=== PATIENT | female | born 1955 | race Caucasian/White ===

== ENCOUNTER 2016-06-12 15:40 | Emergency (ER) | payer OTHER ==
[2016-06-12 16:17] LABS: BASO % 0.6 % (0.0-1.0); EOS # 0.2 K/mm3 (0.0-0.50); EOS % 2.1 % (0.0-3.0); LARGE UNSTAINED CELL # 0.1 K/mm3 (0.0-0.4); LARGE UNSTAINED CELL % 1.8 % (0.0-4.0); LYMPH # 1.9 K/mm3 (1.5-4.5); LYMPH % 23.1 % (24.0-44.0); MEAN CORPUSCULAR HEMOGLOBIN 32.4 pg (27.0-33.0); MEAN CORPUSCULAR HGB CONC 35.1 g/dl (32.0-36.5); MEAN CORPUSCULAR VOLUME 92.3 fl (80.0-96.0); MONO # 0.5 K/mm3 (0.0-0.8); MONO % 6.4 % (0.0-5.0); NEUTROPHILS # 5.4 K/mm3 (1.8-7.7); PLATELET COUNT, AUTOMATED 258 k/mm3 (150-450); RED CELL DISTRIBUTION WIDTH 12.3 % (11.5-14.5); WHITE BLOOD COUNT 8.2 K/mm3 (4.0-10.0)
[2016-06-12 16:27] LABS: INR 0.85
[2016-06-12 19:09] LABS: ANION GAP 9 MEQ/L (8-16); BLOOD UREA NITROGEN 15 MG/DL (7-18); CALCIUM LEVEL 9.7 MG/DL (8.5-10.1); CARBON DIOXIDE LEVEL 23 MEQ/L (21-32); CHLORIDE LEVEL 108 MEQ/L (98-107); CREATININE FOR GFR 0.63 MG/DL (0.55-1.02); GLOMERULAR FILTRATION RATE > 60.0 (>51); GLUCOSE, FASTING 139 MG/DL (70-105); SODIUM LEVEL 140 MEQ/L (136-145)
[2016-06-12] MEDS ORDERED: ATENOLOL 25 MG TAB As Ordered ONE (21:18)
--- NOTE | 2016-06-12 21:30 | EDDOCDS ---
Physician Documentation [facility] Name: Abby Arguelles Age: 60 yrs Sex: Female : 1955 Arrival Date: 06/12/2016 Time: 15:40 Bed 14 Private MD: Disposition: 06/12/16 20:52 Discharged to Home/Self Care. Impression: Chest pain, unspecified. - Condition is Stable. - Discharge Instructions: Angina Pectoris, Nonspecific Chest Pain. - Prescriptions for Aspirin 81 mg - take 1 tablet by ORAL route once daily; 90 tablet. - Medication Reconciliation, Local Pharmacy Hours form. - Follow up: Camron Jack MD; When: Call to arrange an appointment; Reason: To establish care. - Problem is an acute exacerbation. - Symptoms are resolved. - Notes: I SPOKE WITH DR JACK AND HIS OFFICE WILL BE EXPECTING YOUR CALL Monday. RETURN TO THE ER IF YOUR SYMPTOMS RETURN. Historical: - Allergies: no known allergies; - Home Meds: 1. atenolol 50 mg Oral tab 2 times per day - PMHx: [place]; Hypertension; - PSHx: D & C; ; - Social history: Smoking status: Patient states was never smoker of tobacco. No barriers to communication noted, The patient speaks fluent Bengali, Speaks appropriately for age. - Family history: Not pertinent. - : The pt / caregiver states he / she is not on anticoagulants. Home medication list is obtained from the patient. - Exposure Risk Screening:: None identified. Vital Signs: 06/12 15:47 Resp 18; Weight 99.79 kg / 220 lbs (R); Height 5 ft. 4 in. (162.56 cm) (R); Pain 0/10; ead 15:50 BP 171 / 92; Pulse 88; Temp 98.5(O); Pulse Ox 96% on R/A; ead 16:42 BP 163 / 79 (auto/); ead 16:43 Pulse 80 MON; Pulse Ox 95% ; ead 17:12 BP 176 / 84 (auto/); ead 17:13 Pulse 68 MON; Pulse Ox 94% ; ead 17:42 BP 141 / 76 (auto/); ead 17:43 Pulse 78 MON; Pulse Ox 95% ; ead 18:39 Pulse 84 MON; Resp 20; Pulse Ox 95% on R/A; ead 18:42 BP 152 / 87 (auto/); kc3 18:45 Pulse 84 MON; Pulse Ox 95% ; kc3 19:12 BP 172 / 84 (auto/); kc3 19:13 Pulse 84 MON; Pulse Ox 93% ; kc3 19:42 BP 166 / 85 (auto/); kc3 19:43 Pulse 84 MON; Pulse Ox 94% ; kc3 20:12 Pulse 82 MON; Pulse Ox 94% ; kc3 20:14 BP 184 / 92 (auto/); kc3 20:20 BP 189 / 90 (auto/); kc3 20:22 Pulse 92 MON; Pulse Ox 94% ; kc3 21:26 BP 182 / 98; Pulse 86; Resp 18; Temp 96.8(O); Pulse Ox 95% on R/A; Pain 0/10; kc3 15:47 Body Mass Index 37.76 (99.79 kg, 162.56 cm) ead 21:26 Dr. Chavarria aware of pt BP at discharge. Pt medicated with home BP medication prior to [facility] discharge per MD order. Pt approved for discharge per MD. MDM: 15:43 ECG WITH READING ER PHYS+CARDIAG ordered. EDMS 15:50 Aspirin Chewable Tablet 324 mg PO once ordered. fg 15:50 Carpet Repairer/Pulse Ox/q 30 min VS ordered. fg 15:50 IV Saline Lock ordered. fg 15:50 Rhythm Strip to chart ordered. fg 15:50 Undress patient appropriately for examination ordered. fg 15:50 B-Type Natiuretic Peptide Ordered. EDMS 15:50 Basic Metabolic Profile Ordered. EDMS 15:50 CBC with Diff Ordered. EDMS 15:50 Cardiac Injury Profile Ordered. EDMS 15:50 Prothrombin Time Profile\E\INR Ordered. EDMS 15:50 Troponin Ordered. EDMS 15:51 portable chest Ordered. EDMS 17:51 Financial registration complete. zo 18:02 Repeat EKG (put time details section) ordered. fg 18:04 Repeat EKG (put time details section) complete. deg 18:05 ECG WITH READING ER PHYS ordered. EDMS 19:13 Basic Metabolic Profile Reviewed. mm11 19:13 CBC with Diff Reviewed. mm11 19:13 Prothrombin Time Profile\E\INR Reviewed. mm11 19:13 B-Type Natiuretic Peptide Reviewed. mm11 19:13 Cardiac Injury Profile Reviewed. mm11 19:13 Troponin Reviewed. mm11 19:55 Redraw CIP &Troponin (put time in details section) ordered. mm11 19:56 Redraw CIP &Troponin (put time in details section) complete. ar3 19:57 CARDIAC MARKER PANEL Ordered. EDMS 20:08 [facility] Payment Agreement was scanned into [employer] and attached to record. zo 20:45 CARDIAC MARKER PANEL Reviewed. mm11 21:17 Atenolol 50 mg PO once ordered. mm11 Administered Medications: 15:52 Not Given (pt received 324 mg prior to arrivall): Aspirin Chewable Tablet 324 mg PO onceead 21:22 Drug: Atenolol 50 mg [atenolol 25 mg tablet (2 tabs)] Route: PO; kc3 Signatures: Dispatcher [employer] EDRenea Rodriguez, El Teacher Unit deg Guero Yates zo Ulisses Chavarria, DO mm11 [place], FIGHTING VEHICLE SYSTEMS MAINTAINER FIGHTING VEHICLE SYSTEMS MAINTAINER arTalya Stahl,RN RN Radha Ray MD MD fg Crane, Kelsi,[place] RN kc3 The chart was reviewed and I authenticate all verbal orders and agree with the evaluation and treatment provided.Corrections: (The following items were deleted from the chart) 18:38 18:04 CARDIAC MARKER PANEL+LAB ordered. EDMS EDMS 18:38 18:04 TROPONIN+LAB ordered. EDMS EDMS Attachments: 20:08 [facility] Payment Agreement zo MTDD
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
--- NOTE | 2016-06-13 11:24 | REP ---
Portable chest, single AP view, patient sitting: Comparison is 11/06/2014. The lung castellon are clear. The cardiac size is normal The kameron, mediastinum, and bony thorax are unremarkable. Impression: Negative portable chest. Signed by Marco A Brennan MD 06/12/2016 04:50 P
--- NOTE | 2016-06-13 20:37 | ECGEPIP ---
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
--- NOTE | 2016-06-13 20:51 | ECGEPIP ---
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
--- NOTE | 2016-06-14 22:30 | EDDOCDS ---
Physician Documentation [facility] Name: Abby Arguelles Age: 60 yrs Sex: Female : 1955 Arrival Date: 06/12/2016 Time: 15:40 Bed 14 Private MD: Disposition: 06/12/16 20:52 Discharged to Home/Self Care. Impression: Chest pain, unspecified. - Condition is Stable. - Discharge Instructions: Angina Pectoris, Nonspecific Chest Pain. - Prescriptions for Aspirin 81 mg - take 1 tablet by ORAL route once daily; 90 tablet. - Medication Reconciliation, Local Pharmacy Hours form. - Follow up: Camron Jack MD; When: Call to arrange an appointment; Reason: To establish care. - Problem is an acute exacerbation. - Symptoms are resolved. - Notes: I SPOKE WITH DR JACK AND HIS OFFICE WILL BE EXPECTING YOUR CALL Monday. RETURN TO THE ER IF YOUR SYMPTOMS RETURN. Historical: - Allergies: no known allergies; - Home Meds: 1. atenolol 50 mg Oral tab 2 times per day - PMHx: [place]; Hypertension; - PSHx: D & C; ; - Social history: Smoking status: Patient states was never smoker of tobacco. No barriers to communication noted, The patient speaks fluent Uzbek, Speaks appropriately for age. - Family history: Not pertinent. - : The pt / caregiver states he / she is not on anticoagulants. Home medication list is obtained from the patient. - Exposure Risk Screening:: None identified. Vital Signs: 06/12 15:47 Resp 18; Weight 99.79 kg / 220 lbs (R); Height 5 ft. 4 in. (162.56 cm) (R); Pain 0/10; ead 15:50 BP 171 / 92; Pulse 88; Temp 98.5(O); Pulse Ox 96% on R/A; ead 16:42 BP 163 / 79 (auto/); ead 16:43 Pulse 80 MON; Pulse Ox 95% ; ead 17:12 BP 176 / 84 (auto/); ead 17:13 Pulse 68 MON; Pulse Ox 94% ; ead 17:42 BP 141 / 76 (auto/); ead 17:43 Pulse 78 MON; Pulse Ox 95% ; ead 18:39 Pulse 84 MON; Resp 20; Pulse Ox 95% on R/A; ead 18:42 BP 152 / 87 (auto/); kc3 18:45 Pulse 84 MON; Pulse Ox 95% ; kc3 19:12 BP 172 / 84 (auto/); kc3 19:13 Pulse 84 MON; Pulse Ox 93% ; kc3 19:42 BP 166 / 85 (auto/); kc3 19:43 Pulse 84 MON; Pulse Ox 94% ; kc3 20:12 Pulse 82 MON; Pulse Ox 94% ; kc3 20:14 BP 184 / 92 (auto/); kc3 20:20 BP 189 / 90 (auto/); kc3 20:22 Pulse 92 MON; Pulse Ox 94% ; kc3 21:26 BP 182 / 98; Pulse 86; Resp 18; Temp 96.8(O); Pulse Ox 95% on R/A; Pain 0/10; kc3 15:47 Body Mass Index 37.76 (99.79 kg, 162.56 cm) ead 21:26 Dr. Chavarria aware of pt BP at discharge. Pt medicated with home BP medication prior to [facility] discharge per MD order. Pt approved for discharge per MD. MDM: 15:43 ECG WITH READING ER PHYS+CARDIAG ordered. EDMS 15:50 Aspirin Chewable Tablet 324 mg PO once ordered. fg 15:50 Regulatory Compliance Director/Pulse Ox/q 30 min VS ordered. fg 15:50 IV Saline Lock ordered. fg 15:50 Rhythm Strip to chart ordered. fg 15:50 Undress patient appropriately for examination ordered. fg 15:50 B-Type Natiuretic Peptide Ordered. EDMS 15:50 Basic Metabolic Profile Ordered. EDMS 15:50 CBC with Diff Ordered. EDMS 15:50 Cardiac Injury Profile Ordered. EDMS 15:50 Prothrombin Time Profile\E\INR Ordered. EDMS 15:50 Troponin Ordered. EDMS 15:51 portable chest Ordered. EDMS 17:51 Financial registration complete. zo 18:02 Repeat EKG (put time details section) ordered. fg 18:04 Repeat EKG (put time details section) complete. deg 18:05 ECG WITH READING ER PHYS ordered. EDMS 19:13 Basic Metabolic Profile Reviewed. mm11 19:13 CBC with Diff Reviewed. mm11 19:13 Prothrombin Time Profile\E\INR Reviewed. mm11 19:13 B-Type Natiuretic Peptide Reviewed. mm11 19:13 Cardiac Injury Profile Reviewed. mm11 19:13 Troponin Reviewed. mm11 19:55 Redraw CIP &Troponin (put time in details section) ordered. mm11 19:56 Redraw CIP &Troponin (put time in details section) complete. ar3 19:57 CARDIAC MARKER PANEL Ordered. EDMS 20:08 [facility] Payment Agreement was scanned into [employer] and attached to record. zo 20:45 CARDIAC MARKER PANEL Reviewed. mm11 21:17 Atenolol 50 mg PO once ordered. mm11 06/13 11:53 T-Sheet-- Draft Copy was scanned into [employer] and attached to record. gb 11:53 ECG/EKG was scanned into [employer] and attached to record. gb 11:53 Trend VS was scanned into [employer] and attached to record. gb 11:54 Rhythm Strip was scanned into [employer] and attached to record. gb Administered Medications: 06/12 15:52 Not Given (pt received 324 mg prior to arrivall): Aspirin Chewable Tablet 324 mg PO onceead 21:22 Drug: Atenolol 50 mg [atenolol 25 mg tablet (2 tabs)] Route: PO; kc3 Signatures: Dispatcher [employer] EDMS Renea Martel, Ab Initio Etl Developer Unit deg Riana Fierro, Reg Reg gb [place], Zoeadandre zo Ulisses Chavarria, DO mm11 Oriana Meadowsa, MACHINE SET UP OPERATOR PAPER GOODS MACHINE SET UP OPERATOR PAPER GOODS ar3 Talya Sosa,Radha Sharp RN, MD MD fg Crane, Kelsi,[place] RN kc3 The chart was reviewed and I authenticate all verbal orders and agree with the evaluation and treatment provided.Corrections: (The following items were deleted from the chart) 18:38 18:04 CARDIAC MARKER PANEL+LAB ordered. EDMS EDMS 18:38 18:04 TROPONIN+LAB ordered. EDMS EDMS Attachments: 20:08 [facility] Payment Agreement zo 06/13 11:53 T-Sheet-- Draft Copy gb 11:53 ECG/EKG gb Chart Complete MTDD
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
--- NOTE | 2016-06-14 22:30 | EDDOCDS ---
Physician Documentation [facility] Name: Abby Arguelles Age: 60 yrs Sex: Female : 1955 Arrival Date: 06/12/2016 Time: 15:40 Bed 14 Private MD: Disposition: 06/12/16 20:52 Discharged to Home/Self Care. Impression: Chest pain, unspecified. - Condition is Stable. - Discharge Instructions: Angina Pectoris, Nonspecific Chest Pain. - Prescriptions for Aspirin 81 mg - take 1 tablet by ORAL route once daily; 90 tablet. - Medication Reconciliation, Local Pharmacy Hours form. - Follow up: Camron Jack MD; When: Call to arrange an appointment; Reason: To establish care. - Problem is an acute exacerbation. - Symptoms are resolved. - Notes: I SPOKE WITH DR JACK AND HIS OFFICE WILL BE EXPECTING YOUR CALL Monday. RETURN TO THE ER IF YOUR SYMPTOMS RETURN. Historical: - Allergies: no known allergies; - Home Meds: 1. atenolol 50 mg Oral tab 2 times per day - PMHx: [place]; Hypertension; - PSHx: D & C; ; - Social history: Smoking status: Patient states was never smoker of tobacco. No barriers to communication noted, The patient speaks fluent Slovak, Speaks appropriately for age. - Family history: Not pertinent. - : The pt / caregiver states he / she is not on anticoagulants. Home medication list is obtained from the patient. - Exposure Risk Screening:: None identified. Vital Signs: 06/12 15:47 Resp 18; Weight 99.79 kg / 220 lbs (R); Height 5 ft. 4 in. (162.56 cm) (R); Pain 0/10; ead 15:50 BP 171 / 92; Pulse 88; Temp 98.5(O); Pulse Ox 96% on R/A; ead 16:42 BP 163 / 79 (auto/); ead 16:43 Pulse 80 MON; Pulse Ox 95% ; ead 17:12 BP 176 / 84 (auto/); ead 17:13 Pulse 68 MON; Pulse Ox 94% ; ead 17:42 BP 141 / 76 (auto/); ead 17:43 Pulse 78 MON; Pulse Ox 95% ; ead 18:39 Pulse 84 MON; Resp 20; Pulse Ox 95% on R/A; ead 18:42 BP 152 / 87 (auto/); kc3 18:45 Pulse 84 MON; Pulse Ox 95% ; kc3 19:12 BP 172 / 84 (auto/); kc3 19:13 Pulse 84 MON; Pulse Ox 93% ; kc3 19:42 BP 166 / 85 (auto/); kc3 19:43 Pulse 84 MON; Pulse Ox 94% ; kc3 20:12 Pulse 82 MON; Pulse Ox 94% ; kc3 20:14 BP 184 / 92 (auto/); kc3 20:20 BP 189 / 90 (auto/); kc3 20:22 Pulse 92 MON; Pulse Ox 94% ; kc3 21:26 BP 182 / 98; Pulse 86; Resp 18; Temp 96.8(O); Pulse Ox 95% on R/A; Pain 0/10; kc3 15:47 Body Mass Index 37.76 (99.79 kg, 162.56 cm) ead 21:26 Dr. Chavarria aware of pt BP at discharge. Pt medicated with home BP medication prior to [facility] discharge per MD order. Pt approved for discharge per MD. MDM: 15:43 ECG WITH READING ER PHYS+CARDIAG ordered. EDMS 15:50 Aspirin Chewable Tablet 324 mg PO once ordered. fg 15:50 Channel Worker/Pulse Ox/q 30 min VS ordered. fg 15:50 IV Saline Lock ordered. fg 15:50 Rhythm Strip to chart ordered. fg 15:50 Undress patient appropriately for examination ordered. fg 15:50 B-Type Natiuretic Peptide Ordered. EDMS 15:50 Basic Metabolic Profile Ordered. EDMS 15:50 CBC with Diff Ordered. EDMS 15:50 Cardiac Injury Profile Ordered. EDMS 15:50 Prothrombin Time Profile\E\INR Ordered. EDMS 15:50 Troponin Ordered. EDMS 15:51 portable chest Ordered. EDMS 17:51 Financial registration complete. zo 18:02 Repeat EKG (put time details section) ordered. fg 18:04 Repeat EKG (put time details section) complete. deg 18:05 ECG WITH READING ER PHYS ordered. EDMS 19:13 Basic Metabolic Profile Reviewed. mm11 19:13 CBC with Diff Reviewed. mm11 19:13 Prothrombin Time Profile\E\INR Reviewed. mm11 19:13 B-Type Natiuretic Peptide Reviewed. mm11 19:13 Cardiac Injury Profile Reviewed. mm11 19:13 Troponin Reviewed. mm11 19:55 Redraw CIP &Troponin (put time in details section) ordered. mm11 19:56 Redraw CIP &Troponin (put time in details section) complete. ar3 19:57 CARDIAC MARKER PANEL Ordered. EDMS 20:08 [facility] Payment Agreement was scanned into [employer] and attached to record. zo 20:45 CARDIAC MARKER PANEL Reviewed. mm11 21:17 Atenolol 50 mg PO once ordered. mm11 06/13 11:53 T-Sheet-- Draft Copy was scanned into [employer] and attached to record. gb 11:53 ECG/EKG was scanned into [employer] and attached to record. gb 11:53 Trend VS was scanned into [employer] and attached to record. gb 11:54 Rhythm Strip was scanned into [employer] and attached to record. gb Administered Medications: 06/12 15:52 Not Given (pt received 324 mg prior to arrivall): Aspirin Chewable Tablet 324 mg PO onceead 21:22 Drug: Atenolol 50 mg [atenolol 25 mg tablet (2 tabs)] Route: PO; kc3 Signatures: Dispatcher [employer] EDMS Renea Martel, Environmental Field Technician Unit deg Riana Fierro, Reg Reg gb Newton, Zoeadandre zo Ulisses Chavarria, DO mm11 Oriana Meadowsa, LANGUAGE INSTRUCTOR LANGUAGE INSTRUCTOR ar3 Talya Sosa,Radha Sharp RN, MD MD fg Crane, Kelsi,[place] RN kc3 The chart was reviewed and I authenticate all verbal orders and agree with the evaluation and treatment provided.Corrections: (The following items were deleted from the chart) 18:38 18:04 CARDIAC MARKER PANEL+LAB ordered. EDMS EDMS 18:38 18:04 TROPONIN+LAB ordered. EDMS EDMS Attachments: 20:08 [facility] Payment Agreement zo 06/13 11:53 T-Sheet-- Draft Copy gb 11:53 ECG/EKG gb Chart Complete MTDD
== END 2016-06-12 21:29 | disposition home or self-care (01) ==
LOC: M ED 15:40
DX: R07.9 Chest pain, unspecified (principal); I20.9 Angina pectoris, unspecified; R94.31 Abnormal electrocardiogram [ECG] [EKG]; R06.02 Shortness of breath; I10 Essential (primary) hypertension; I25.2 Old myocardial infarction; Z79.899 Other long term (current) drug therapy

== ENCOUNTER 2016-07-14 19:26 | Emergency (ER) | payer OTHER ==
[~2016-07-14] VITALS: Ht 162.6 cm; Wt 111.1 kg
[2016-07-14] MEDS ORDERED: HYDR25TAB PO (20:00)
[2016-07-14] MEDS ORDERED: LABE10TAB PO (20:00)
[2016-07-14] MEDS ORDERED: NORV5TAB PO (20:00)
[2016-07-14] MEDS ORDERED: ASPI1TAB PO (20:00)
[2016-07-14] MEDS ORDERED: LABETALOL HCL 100 MG/20 ML VIAL IV STA (20:18)
[2016-07-14 20:40] LABS: BASO # 0.1 K/mm3 (0.0-0.2); BASO % 0.6 % (0.0-1.0); EOS # 0.2 K/mm3 (0.0-0.50); EOS % 2.3 % (0.0-3.0); LARGE UNSTAINED CELL # 0.2 K/mm3 (0.0-0.4); LARGE UNSTAINED CELL % 1.7 % (0.0-4.0); LYMPH # 2.8 K/mm3 (1.5-4.5); LYMPH % 26.2 % (24.0-44.0); MEAN CORPUSCULAR HEMOGLOBIN 32.4 pg (27.0-33.0); MEAN CORPUSCULAR HGB CONC 35.3 g/dl (32.0-36.5); MEAN CORPUSCULAR VOLUME 91.7 fl (80.0-96.0); MONO # 0.8 K/mm3 (0.0-0.8); MONO % 7.9 % (0.0-5.0); NEUTROPHILS # 6.1 K/mm3 (1.8-7.7); NEUTROPHILS % 61.3 % (36.0-66.0); PLATELET COUNT, AUTOMATED 293 k/mm3 (150-450); RED CELL DISTRIBUTION WIDTH 12.3 % (11.5-14.5); WHITE BLOOD COUNT 9.9 K/mm3 (4.0-10.0)
[2016-07-14 22:43] LABS: ANION GAP 11 MEQ/L (8-16); BLOOD UREA NITROGEN 18 MG/DL (7-18); CALCIUM LEVEL 10.2 MG/DL (8.5-10.1); CARBON DIOXIDE LEVEL 25 MEQ/L (21-32); CHLORIDE LEVEL 105 MEQ/L (98-107); CREATININE FOR GFR 0.82 MG/DL (0.55-1.02); GLOMERULAR FILTRATION RATE > 60.0 (>51); GLUCOSE, FASTING 204 MG/DL (70-105); POTASSIUM SERUM 3.8 MEQ/L (3.5-5.1); SODIUM LEVEL 141 MEQ/L (136-145)
[2016-07-15] MEDS ORDERED: LABETALOL 100 MG TAB PO ONE (02:00)
[2016-07-15 02:10] VITALS: BP 164/86
[2016-07-15 02:15] VITALS: BP 175/112
[2016-07-15] MEDS ORDERED: LABE10TAB PO (02:19)
--- NOTE | 2016-07-15 10:13 | REP ---
CHEST X-RAY: Two views. HISTORY: Chest pain. COMPARISON STUDY: June 12, 2016. FINDINGS: An azygos lobe is noted incidentally as before. The lungs are otherwise well inflated and free of infiltrate. Pleural angles are sharp. Heart is not enlarged. EKG monitoring electrodes overlie the chest. IMPRESSION: No active disease. Signed by Walter العراقي MD 07/15/2016 04:39 P
--- NOTE | 2016-07-16 12:14 | ECGEPIP ---
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
== END 2016-07-15 02:35 | disposition home or self-care (01) ==
LOC: EDBD 19:26 → M ED 21:07
DX: I16.0 Hypertensive urgency (principal); I10 Essential (primary) hypertension; Z79.899 Other long term (current) drug therapy; Z79.82 Long term (current) use of aspirin

== ENCOUNTER → 2016-09-13 | Outpatient (REF) | payer OTHER ==
[~2016-09-13] MED LIST: ASPI1TAB PO; HYDR25TAB PO; LABE10TAB PO; NORV5TAB PO
[2016-09-13 13:57] LABS: ALBUMIN/GLOBULIN RATIO 1.05 (1.00-1.93); ALKALINE PHOSPHATASE 77 U/L (45-117); ALT/SGPT 41 U/L (12-78); ANION GAP 8 MEQ/L (8-16); AST/SGOT 17 U/L (15-37); BILIRUBIN,TOTAL 0.4 MG/DL (0.2-1.0); BLOOD UREA NITROGEN 18 MG/DL (7-18); CALCIUM LEVEL 9.7 MG/DL (8.5-10.1); CARBON DIOXIDE LEVEL 25 MEQ/L (21-32); CHLORIDE LEVEL 107 MEQ/L (98-107); CREATININE FOR GFR 0.61 MG/DL (0.55-1.02); FREE T4 1.03 NG/DL (0.76-1.46); GLOMERULAR FILTRATION RATE > 60.0 (>51); GLUCOSE, FASTING 119 MG/DL (70-105); POTASSIUM SERUM 4.2 MEQ/L (3.5-5.1); SODIUM LEVEL 140 MEQ/L (136-145); TOTAL PROTEIN 7.8 GM/DL (6.4-8.2)
== END ==
LOC: M SFHCADAM 10:41
PROVIDERS: ATTEND Physician Assistant
DX: I10 Essential (primary) hypertension (principal); R73.03 Prediabetes; E78.4 Other hyperlipidemia

== ENCOUNTER → 2016-10-11 | Outpatient (REF) | payer OTHER | LOC: M SFHCADAM 09:35 | PROVIDERS: ATTEND Physician Assistant | DX: Z12.4 Encounter for screening for malignant neoplasm of cervix (principal) ==

== ENCOUNTER → 2017-02-09 | Outpatient (REF) | payer OTHER | LOC: M LAB REF 13:41 | PROVIDERS: ATTEND Obstetrics & Gynecology | DX: Q82.8 Other specified congenital malformations of skin (principal) ==

== ENCOUNTER → 2017-03-09 | Outpatient (REF) | payer OTHER ==
[2017-03-09 15:02] LABS: ALBUMIN 3.8 GM/DL (3.2-5.2); ALKALINE PHOSPHATASE 104 U/L (45-117); ALT/SGPT 35 U/L (12-78); ANION GAP 9 MEQ/L (8-16); AST/SGOT 16 U/L (15-37); BILIRUBIN,TOTAL 0.4 MG/DL (0.2-1.0); BLOOD UREA NITROGEN 19 MG/DL (7-18); CALCIUM LEVEL 9.7 MG/DL (8.5-10.1); CARBON DIOXIDE LEVEL 25 MEQ/L (21-32); CHLORIDE LEVEL 107 MEQ/L (98-107); CHOLESTEROL LEVEL 157 MG/DL (<200); CREATININE FOR GFR 0.68 MG/DL (0.55-1.02); GLOMERULAR FILTRATION RATE > 60.0 (>51); GLUCOSE, FASTING 120 MG/DL (70-105); POTASSIUM SERUM 4.3 MEQ/L (3.5-5.1); SODIUM LEVEL 141 MEQ/L (136-145); TOTAL PROTEIN 7.6 GM/DL (6.4-8.2); TRIGLYCERIDES LEVEL 179 MG/DL (<150)
== END ==
LOC: M SFHCADAM 08:58
PROVIDERS: ATTEND Physician Assistant
DX: R73.03 Prediabetes (principal); E78.4 Other hyperlipidemia; I10 Essential (primary) hypertension

== ENCOUNTER → 2017-07-28 | Outpatient (REF) | payer OTHER ==
[2017-07-28 13:20] LABS: ALBUMIN 4.1 GM/DL (3.2-5.2); ALBUMIN/GLOBULIN RATIO 1.28 (1.00-1.93); ALKALINE PHOSPHATASE 78 U/L (45-117); ALT/SGPT 46 U/L (12-78); ANION GAP 8 MEQ/L (8-16); AST/SGOT 14 U/L (7-37); BILIRUBIN,TOTAL 0.5 MG/DL (0.2-1.0); BLOOD UREA NITROGEN 23 MG/DL (7-18); CARBON DIOXIDE LEVEL 26 MEQ/L (21-32); CHLORIDE LEVEL 106 MEQ/L (98-107); CREATININE FOR GFR 0.67 MG/DL (0.55-1.30); GLOMERULAR FILTRATION RATE > 60.0 (>51); GLUCOSE, FASTING 117 MG/DL (70-100); POTASSIUM SERUM 4.3 MEQ/L (3.5-5.1); SODIUM LEVEL 140 MEQ/L (136-145); TOTAL PROTEIN 7.3 GM/DL (6.4-8.2)
[2017-07-28 13:25] LABS: ESTIMATED AVERAGE GLUCOSE 131 MG/DL (60-110); HEMOGLOBIN A1c 6.2 %
== END ==
LOC: M SFHCADAM 08:00
DX: E11.9 Type 2 diabetes mellitus without complications (principal); I10 Essential (primary) hypertension
CPT/HCPCS: 83036

== ENCOUNTER → 2018-02-05 | Outpatient (REF) | payer OTHER ==
[2018-02-05 13:35] LABS: ALBUMIN 3.6 GM/DL (3.2-5.2); ALBUMIN/GLOBULIN RATIO 1.03 (1.00-1.93); ALKALINE PHOSPHATASE 81 U/L (45-117); ALT/SGPT 29 U/L (12-78); ANION GAP 6 MEQ/L (8-16); AST/SGOT 15 U/L (7-37); BILIRUBIN,TOTAL 0.4 MG/DL (0.2-1.0); BLOOD UREA NITROGEN 19 MG/DL (7-18); CALCIUM LEVEL 9.7 MG/DL (8.8-10.2); CARBON DIOXIDE LEVEL 26 MEQ/L (21-32); CHLORIDE LEVEL 110 MEQ/L (98-107); CHOLESTEROL LEVEL 119 MG/DL (<200); CHOLESTEROL RISK RATIO 2.902 (<5); CREATININE FOR GFR 0.67 MG/DL (0.55-1.30); GLOMERULAR FILTRATION RATE > 60.0 (>45); GLUCOSE, FASTING 117 MG/DL (70-100); HDL CHOLESTEROL 41 MG/DL (>40); LDL CHOLESTEROL 55 MG/DL (<100); NON-HDL-C 78 MG/DL; POTASSIUM SERUM 4.3 MEQ/L (3.5-5.1); SODIUM LEVEL 142 MEQ/L (136-145); TOTAL PROTEIN 7.1 GM/DL (6.4-8.2); TRIGLYCERIDES LEVEL 115 MG/DL (<150)
[2018-02-05 14:20] LABS: ESTIMATED AVERAGE GLUCOSE 123 MG/DL (60-110); HEMOGLOBIN A1c 5.9 %
== END ==
LOC: M SFHCADAM 07:53
DX: I10 Essential (primary) hypertension (principal); E78.4 Other hyperlipidemia; E11.9 Type 2 diabetes mellitus without complications

== ENCOUNTER → 2018-07-31 | Outpatient (REF) | payer OTHER | LOC: M LAB REF 19:10 | PROVIDERS: ATTEND Physician Assistant Medical | DX: J02.9 Acute pharyngitis, unspecified (principal) ==

== ENCOUNTER → 2018-09-28 | Outpatient (REF) | payer OTHER ==
[~2018-09-28] MED LIST changes: -ASPI1TAB PO; +ASPI81TA26 PO
[2018-09-28 14:20] LABS: MALB URINE SIEMENS 12.1 MG/L; MAU/CREAT RATIO 13.1 MCG/MG (0.0-30.0)
[2018-09-28 18:14] LABS: HEMOGLOBIN A1c 5.9 %
== END ==
LOC: M SFHCADAM 09:07
PROVIDERS: ATTEND Physician Assistant
DX: E11.9 Type 2 diabetes mellitus without complications (principal); I10 Essential (primary) hypertension

== ENCOUNTER 2018-11-12 08:41 | Emergency (ER) | payer OTHER ==
[~2018-11-12] VITALS: Ht 162.6 cm; Wt 97.0 kg
[2018-11-12] MEDS ORDERED: LOSA25TA14 (08:47)
[2018-11-12] MEDS ORDERED: METF10004 (08:47)
[2018-11-12] MEDS ORDERED: ATOR40TA75 (08:47)
[2018-11-12] MEDS ORDERED: VENL75TA2 (08:47)
[2018-11-12] MEDS ORDERED: SPIR-10 (08:47)
[2018-11-12] MEDS ORDERED: IBUP-1114 PO (08:49)
[2018-11-12] MEDS ORDERED: NS 1,000 ML IV SCH (09:03)
[2018-11-12] MEDS ORDERED: KETOROLAC 30 MG/ML VIAL (J1885) IV ONE (09:15)
[2018-11-12] MEDS ORDERED: LR 1,000 ML IV SCH (09:30)
[2018-11-12] MEDS ORDERED: MEPERIDINE INJ 25 MG/ML VIAL (J2175) IV PRN (09:30)
[2018-11-12] MEDS ORDERED: ONDANSETRON 4MG/2ML VIAL (J2405) IV PRN (09:30)
[2018-11-12] MEDS ORDERED: PERCOCET 5MG/325MG TAB PO PRN (09:30)
[2018-11-12] MEDS ORDERED: fentaNYL 100 MCG/2 ML INJECTION (J3010) IV PRN (09:30)
[2018-11-12] MEDS ORDERED: METOCLOPRAMIDE INJ 10MG/2ML VIAL (J2765) IV PRN (09:30)
--- NOTE | 2018-11-12 09:42 | REP ---
Clinical: Left flank pain. Technique: Axial noncontrast images from the lung bases to the pubic symphysis with coronal and sagittal re-formations. Findings: Mild acute left-sided obstructive uropathy with perinephric and periureteral stranding as well as hydroureteronephrosis is secondary to 5 mm obstructing calculus in the distal left ureter (images 118-120) multiple calculi in the distal left ureter versus adjacent phleboliths cannot be excluded as well. Further evaluation of the urinary tract system includes 7.2 cm lower pole right renal cyst. No further urinary tract calcifications identified. Liver, spleen, pancreas, gallbladder, and bilateral adrenal glands are normal for noncontrast evaluation. The enteric system is without obstruction or acute inflammatory process. Pelvis demonstrates collapsed bladder with obstructing calculi in the distal left ureter as noted above. Normal uterus / adnexa noted. Phleboliths identified. No ascites. No free air. No adenopathy. Atherosclerotic changes to the aorta and vasculature noted. Musculoskeletal structures demonstrate degenerative changes without focal osseous abnormality. Lung bases are clear. Impression: 1. Mild left-sided obstructive uropathy with at least a single 5 mm obstructing calculus in the distal left ureter. Adjacent calculi measuring between three and 4 mm are also identified and may represent ureteral calculi versus phleboliths. 2. 7.2 cm right renal hypodensity most compatible with bilobed cyst. Electronically Signed by Kevyn Reyes MD 11/12/2018 09:33 A
[2018-11-12 09:50] LABS: BASO % 0.3 % (0.0-1.0); EOS # 0.1 10^3/uL (0.0-0.50); EOS % 0.8 % (0.0-3.0); HEMATOCRIT 39.3 % (36.0-47.0); HEMOGLOBIN 13.2 g/dl (12.0-15.5); LYMPH # 1.2 10^3/uL (1.5-4.5); LYMPH % 10.3 % (24.0-44.0); MEAN CORPUSCULAR HEMOGLOBIN 31.5 pg (27.0-33.0); MEAN CORPUSCULAR HGB CONC 33.6 g/dl (32.0-36.5); MEAN CORPUSCULAR VOLUME 93.8 fl (80.0-96.0); MONO # 0.8 10^3/uL (0.0-0.8); MONO % 6.4 % (0.0-5.0); NEUTROPHILS # 9.7 10^3/uL (1.8-7.7); NEUTROPHILS % 81.8 % (36.0-66.0); PLATELET COUNT, AUTOMATED 279 10^3/uL (150-450); RED BLOOD COUNT 4.19 10^6/uL (4.00-5.40); WHITE BLOOD COUNT 11.9 10^3/uL (4.0-10.0)
[2018-11-12 10:10] LABS: ALBUMIN 3.7 GM/DL (3.2-5.2); ALT/SGPT 26 U/L (12-78); BILIRUBIN,DIRECT 0.1 MG/DL (0.0-0.2); BILIRUBIN,TOTAL 0.3 MG/DL (0.2-1.0); BLOOD UREA NITROGEN 19 MG/DL (7-18); CALCIUM LEVEL 9.9 MG/DL (8.8-10.2); CARBON DIOXIDE LEVEL 23 MEQ/L (21-32); CHLORIDE LEVEL 111 MEQ/L (98-107); CREATININE FOR GFR 0.96 MG/DL (0.55-1.30); GLOMERULAR FILTRATION RATE > 60.0 (>45); GLUCOSE, FASTING 158 MG/DL (70-100); LIPASE 132 U/L (73-393); POTASSIUM SERUM 4.5 MEQ/L (3.5-5.1); SODIUM LEVEL 142 MEQ/L (136-145); TOTAL PROTEIN 7.1 GM/DL (6.4-8.2)
[2018-11-12] MEDS ORDERED: MORPHINE 4 MG/ML 1ML VIAL/SYRINGE (J2270) IV ONE (10:15)
[2018-11-12] MEDS ORDERED: ONDANSETRON 4MG/2ML VIAL (J2405) IV ONE (11:00)
[2018-11-12] MEDS ORDERED: PERCOCET 5MG/325MG TAB PO ONE (11:30)
[2018-11-12 12:31] VITALS: BP 164/74
[2018-11-12] MEDS ORDERED: FLOM0.4C39 PO (12:37)
[2018-11-12] MEDS ORDERED: PERC5TAB12 PO (12:38)
--- NOTE | 2018-11-12 14:04 | ED PDOC ---
Post-Departure Follow-Up dr adams and dee dee whitfield faxed formal report of ct abd/p for fu Camila Gordon MD Nov 12, 2018 14:04
== END 2018-11-12 12:54 | disposition home or self-care (01) ==
LOC: M ED 08:41
DX: N13.2 Hydronephrosis with renal and ureteral calculous obstruction (principal); I10 Essential (primary) hypertension; E11.9 Type 2 diabetes mellitus without complications; E78.5 Hyperlipidemia, unspecified; F32.9 Major depressive disorder, single episode, unspecified; Z79.82 Long term (current) use of aspirin; Z79.84 Long term (current) use of oral hypoglycemic drugs; Z79.899 Other long term (current) drug therapy
CPT/HCPCS: 74176; 80048; 80076; 81001; 83690; 85025; 87086; 96361; 96374; 96375; 99284; J1885; J2270; J2405

== ENCOUNTER → 2018-11-29 | Outpatient (CLI) | payer OTHER ==
[~2018-11-29] MED LIST changes: +ATOR40TA75; +FLOM0.4C39 PO; +IBUP-1114 PO; +ISOVUE-370 76% 100ML VIAL (Q9967) As Ordered ONE; +LOSA25TA14; +METF10004; +PERC5TAB12 PO; +SPIR-10; +VENL75TA2
--- NOTE | 2018-11-29 18:30 | REP ---
CT urography: History: Ureteral stone, renal cyst, microscopic hematuria. Comparison study: November 12, 2018. CT contrast dose: 100 ml of intravenous Isovue 370. CT findings: Preliminary digital head girls golf coach radiograph is unremarkable. The lung bases are clear on axial CT images. There is mild diffuse fatty infiltration of the liver with areas of fat sparing near the gallbladder. No hepatic or splenic mass lesion is seen. No adrenal lesion is observed on either side. The gallbladder and the pancreas are unremarkable. Previously noted left-sided hydronephrosis is improved. There is still a stone in the distal left ureter. This stone measures 6 mm in greatest diameter. It has descended slightly in the interval since the study done November 12, 2018. It is still 2-3 cm from the ureterovesical junction. There are phleboliths adjacent to it. There is minimal hydroureter. No hydronephrosis is noted on the right. A retroaortic left renal vein is noted. There is a tiny splenule. There is a 7.2 cm simple cyst in the lower pole of the right kidney. No contrast enhancement is seen within this. There are tiny cortical cysts in the left kidney. No filling defect is seen in the intrarenal collecting system on either side. No bladder mass is observed. No uterine or adnexal abnormality. No abdominal wall defect seen. Impression: Improved but persistent mild left-sided hydronephrosis and hydroureter due to a 6 mm distal ureteral calculus located 2-3 cm above the ureterovesical junction in the left distal ureter. No other urinary tract calculus is appreciated. There is a 7.2 cm simple cyst in the lower pole of the right kidney. Electronically Signed by Walter العراقي MD 11/29/2018 07:28 P
== END ==
LOC: M RAD 14:43
PROVIDERS: ATTEND Nurse Practitioner Women's Health
DX: N20.1 Calculus of ureter (principal); R31.21 Asymptomatic microscopic hematuria; N28.1 Cyst of kidney, acquired
CPT/HCPCS: 74178; Q9967

== ENCOUNTER → 2018-12-06 | Outpatient (REF) | payer OTHER ==
[~2018-12-06] MED LIST changes: -ISOVUE-370 76% 100ML VIAL (Q9967) As Ordered ONE
[2018-12-06 15:05] LABS: APPEARANCE, URINE CLEAR (CLEAR); BACTERIA, URINE AUTO NEGATIVE (NEGATIVE); BILIRUBIN, URINE AUTO NEGATIVE (NEGATIVE); BLOOD, URINE BLOOD NEGATIVE (NEGATIVE); COLOR, URINE YELLOW (YELLOW); GLUCOSE, URINE (UA) AUTO NEGATIVE (NEGATIVE); KETONE, URINE AUTO NEGATIVE (NEGATIVE); LEUKOCYTE ESTERASE, URINE AUTO NEGATIVE (NEGATIVE); MUCUS, URINE SMALL (NEGATIVE); NITRITE, URINE AUTO NEGATIVE (NEGATIVE); PROTEIN, URINE AUTO NEGATIVE (NEGATIVE); RBC, URINE AUTO 0 /HPF (0-3); SPECIFIC GRAVITY URINE AUTO 1.014 (1.002-1.035); SQUAMOUS EPITHELIAL CELL UR AU 0 /HPF (0-6); UROBILINOGEN, URINE AUTO 0.2 mg/dL (0.0-2.0); WBC, URINE AUTO 1 /HPF (0-3)
== END ==
LOC: M SMT 13:51
PROVIDERS: ATTEND Nurse Practitioner Women's Health
DX: N13.2 Hydronephrosis with renal and ureteral calculous obstruction (principal)

== ENCOUNTER → 2018-12-28 | Outpatient (REF) | payer OTHER ==
[~2018-12-28] MED LIST changes: -ATOR40TA75; +ATOR40TA75 PO; +CVS250TA3 PO; +FERR325T3 PO; -LOSA25TA14; +LOSA25TA14 PO; -METF10004; +METF10004 PO; +RANI15TA PO; -SPIR-10; +SPIR-10 PO; -VENL75TA2; +VENL75TA2 PO
[2018-12-28 17:33] LABS: BLOOD UREA NITROGEN 16 MG/DL (7-18); CALCIUM LEVEL 9.8 MG/DL (8.8-10.2); CARBON DIOXIDE LEVEL 25 MEQ/L (21-32); CHLORIDE LEVEL 110 MEQ/L (98-107); CREATININE FOR GFR 0.74 MG/DL (0.55-1.30); GLOMERULAR FILTRATION RATE > 60.0 (>45); GLUCOSE, FASTING 109 MG/DL (70-100); POTASSIUM SERUM 4.2 MEQ/L (3.5-5.1); SODIUM LEVEL 141 MEQ/L (136-145)
[2018-12-28 17:34] LABS: BASO % 0.4 % (0.0-1.0); EOS # 0.2 10^3/uL (0.0-0.50); EOS % 2.2 % (0.0-3.0); HEMATOCRIT 40.7 % (36.0-47.0); HEMOGLOBIN 13.5 g/dl (12.0-15.5); LYMPH # 2.5 10^3/uL (1.5-4.5); LYMPH % 27.4 % (24.0-44.0); MEAN CORPUSCULAR HEMOGLOBIN 30.6 pg (27.0-33.0); MEAN CORPUSCULAR HGB CONC 33.2 g/dl (32.0-36.5); MEAN CORPUSCULAR VOLUME 92.3 fl (80.0-96.0); MONO # 0.9 10^3/uL (0.0-0.8); NEUTROPHILS # 5.3 10^3/uL (1.8-7.7); NEUTROPHILS % 59.7 % (36.0-66.0); PLATELET COUNT, AUTOMATED 320 10^3/uL (150-450); RED BLOOD COUNT 4.41 10^6/uL (4.00-5.40); WHITE BLOOD COUNT 8.9 10^3/uL (4.0-10.0)
[2018-12-28 17:45] LABS: PARTIAL THROMBOPLASTIN TIME 28.9 SECONDS (25.0-38.4)
[2018-12-28 17:53] LABS: INR 0.98; PROTHROMBIN TIME 12.7 SECONDS (11.8-14.0)
== END ==
LOC: M SFHCPLAZ 14:27
PROVIDERS: ATTEND Family Medicine
DX: Z01.818 Encounter for other preprocedural examination (principal)

== ENCOUNTER → 2018-12-28 | Outpatient (CLI) | payer OTHER ==
--- NOTE | 2018-12-28 16:34 | REP ---
HISTORY: Preoperative evaluation. COMPARISON: 07/14/2016 FINDINGS: The superior mediastinal structures are midline. The cardiac silhouette is unremarkable in size, shape and position. The diaphragmatic surfaces of the lungs are regular and the costophrenic angles are clear. The pulmonary castellon are clear. The imaged osseous structures are intact. IMPRESSION: There is no acute cardiopulmonary disease. Electronically Signed by Omar Masters DO 12/28/2018 04:35 P
== END ==
LOC: M RAD 14:52
PROVIDERS: ATTEND Family Medicine
DX: Z01.818 Encounter for other preprocedural examination (principal)

== ENCOUNTER 2019-01-07 07:14 | Day surgery (SDC) | payer OTHER ==
[~2019-01-07] VITALS: Ht 162.6 cm; Wt 96.7 kg
[~2019-01-07 07:14] MED LIST changes: +LR 1,000 ML IV ONE
[2019-01-07] MEDS ORDERED: ONDANSETRON 4MG/2ML VIAL (J2405) As Ordered ONE (07:52)
[2019-01-07] MEDS ORDERED: dexameTHASONE 4 MG/ML 1ML VIAL (J1100) As Ordered ONE (07:52)
[2019-01-07] MEDS ORDERED: MIDAZOLAM INJ 2 MG/2 ML VIAL (J2250) As Ordered ONE (07:52)
[2019-01-07] MEDS ORDERED: PROPOFOL 200 MG/20 ML VIAL As Ordered ONE (07:52)
[2019-01-07] MEDS ORDERED: LIDOCAINE 2% INJ 100 MG/5 ML SDV (FOR ANES.) As Ordered ONE (07:52)
[2019-01-07] MEDS ORDERED: fentaNYL 100 MCG/2 ML INJECTION (J3010) As Ordered ONE (07:53)
[2019-01-07] MEDS ORDERED: CONRAY-60 60% 50ML VIAL (Q9961) As Ordered ONE (08:08)
[2019-01-07] MEDS ORDERED: ePHEDrine SULFATE 25 MG/5 ML(5MG/ML) SYRINGE As Ordered ONE (08:46)
[2019-01-07] MEDS ORDERED: KETOROLAC 60 MG/2 ML VIAL (J1885) As Ordered ONE (08:59)
[2019-01-07] MEDS ORDERED: fentaNYL 100 MCG/2 ML INJECTION (J3010) IV PRN (09:30)
[2019-01-07] MEDS ORDERED: oxyCODONE 5MG TAB PO PRN (09:30)
[2019-01-07] MEDS ORDERED: LR 1,000 ML IV SCH (09:30)
[2019-01-07] MEDS ORDERED: ONDANSETRON 4MG/2ML VIAL (J2405) IV PRN (09:30)
[2019-01-07 10:15] VITALS: BP 151/72
--- NOTE | 2019-01-08 16:33 | RO ---
DATE OF PROCEDURE: 01/07/2019 PREPROCEDURE DIAGNOSIS: Left distal ureteral stone. POSTPROCEDURE DIAGNOSIS: Status post passage of left ureteral stone. PROCEDURE PERFORMED: Left diagnostic ureteroscopy. SURGEON: Doc Watters MD CTRS: ANESTHESIA: General. INDICATION: This 63-year-old lady presented with left-sided colicky pain and made several trips to the emergency room. Films showed persistence of a left distal 6 mm ureteral stone. She has not had significant symptoms since her last emergency room (ER) visit, but has not seen a stone pass. DESCRIPTION OF PROCEDURE: After obtaining informed consent from the patient, she was taken to the operating room after ensuring adequate anesthetic. She was prepped and draped in the usual manner. The 22-Croat[place] diagnostic cystoscope was advanced to the bladder and the bladder inspected. No lesions were seen. No stones were seen. A wire was passed on the left side to the kidney. The rigid mini ureteroscope was advanced alongside the wire and the entire ureter was visualized. No stone was present. It was noted the distal ureteral orifice appeared to be fairly capacious, possibly consistent with recent stone passage. The scope was withdrawn. The wire was withdrawn. We elected not to leave a stent. The bladder was emptied, the patient to recovery in satisfactory condition. DISPOSITION: Dismissed home to followup in 2 weeks' time with nurse practitioner. Diet as tolerated. Activity light. Medications - ibuprofen as needed for pain. Activity ad harley. No other medications required.
== END 2019-01-07 10:30 | disposition home or self-care (01) ==
LOC: M SDC 07:14
PROVIDERS: ATTEND Urology
DX: Z87.442 Personal history of urinary calculi (principal); I10 Essential (primary) hypertension; E11.9 Type 2 diabetes mellitus without complications; E78.5 Hyperlipidemia, unspecified; I25.2 Old myocardial infarction; R12 Heartburn; M12.9 Arthropathy, unspecified; F32.1 Major depressive disorder, single episode, moderate; F41.9 Anxiety disorder, unspecified; F03.90 Unspecified dementia, unspecified severity, without behavioral disturbance, psychotic disturbance, mood disturbance, and anxiety; Z79.899 Other long term (current) drug therapy; Z79.82 Long term (current) use of aspirin; Z79.84 Long term (current) use of oral hypoglycemic drugs; Z78.0 Asymptomatic menopausal state; Z68.36 Body mass index [BMI] 36.0-36.9, adult
CPT/HCPCS: 52000; 74420; C1769; J0690; J1100; J1885; J2250; J2405; J3010

== ENCOUNTER → 2019-09-17 | Outpatient (REF) | payer OTHER ==
[~2019-09-17] MED LIST changes: -CVS250TA3 PO; -LR 1,000 ML IV ONE; +MAGN250T22 PO
[2019-09-17 13:07] LABS: HEMATOCRIT 41.7 % (36.0-47.0); HEMOGLOBIN 13.5 g/dl (12.0-15.5); MEAN CORPUSCULAR HEMOGLOBIN 30.5 pg (27.0-33.0); MEAN CORPUSCULAR HGB CONC 32.4 g/dl (32.0-36.5); MEAN CORPUSCULAR VOLUME 94.1 fl (80.0-96.0); PLATELET COUNT, AUTOMATED 307 10^3/uL (150-450); RED BLOOD COUNT 4.43 10^6/uL (4.00-5.40); WHITE BLOOD COUNT 7.6 10^3/uL (4.0-10.0)
[2019-09-17 13:13] LABS: ALBUMIN 3.9 GM/DL (3.2-5.2); ALT/SGPT 37 U/L (12-78); BILIRUBIN,TOTAL 0.3 MG/DL (0.2-1.0); BLOOD UREA NITROGEN 22 MG/DL (7-18); CALCIUM LEVEL 10.3 MG/DL (8.8-10.2); CARBON DIOXIDE LEVEL 26 MEQ/L (21-32); CHLORIDE LEVEL 108 MEQ/L (98-107); CHOLESTEROL LEVEL 129 MG/DL (<200); CHOLESTEROL RISK RATIO 2.931 (<5); CREATININE FOR GFR 0.67 MG/DL (0.55-1.30); GLOMERULAR FILTRATION RATE > 60.0 (>45); GLUCOSE, FASTING 109 MG/DL (70-100); HDL CHOLESTEROL 44 MG/DL (>40); LDL CHOLESTEROL 62 MG/DL (<100); NON-HDL-C 85 MG/DL; POTASSIUM SERUM 4.3 MEQ/L (3.5-5.1); SODIUM LEVEL 140 MEQ/L (136-145); TOTAL PROTEIN 7.1 GM/DL (6.4-8.2); TRIGLYCERIDES LEVEL 117 MG/DL (<150)
[2019-09-17 13:34] LABS: HEMOGLOBIN A1c 6.3 %
== END ==
LOC: M SFHCADAM 08:28
PROVIDERS: ATTEND Physician Assistant
DX: E11.9 Type 2 diabetes mellitus without complications (principal); I10 Essential (primary) hypertension; E78.5 Hyperlipidemia, unspecified

== ENCOUNTER → 2020-09-25 | Outpatient (REF) | payer OTHER ==
[~2020-09-25] MED LIST changes: +HYDR-3490 PO; -HYDR25TAB PO; +LABE100T4 PO; -LABE10TAB PO
[2020-09-25 12:48] LABS: HEMATOCRIT 42.3 % (36.0-47.0); HEMOGLOBIN 13.7 g/dl (12.0-15.5); MEAN CORPUSCULAR HEMOGLOBIN 30.6 pg (27.0-33.0); MEAN CORPUSCULAR HGB CONC 32.4 g/dl (32.0-36.5); MEAN CORPUSCULAR VOLUME 94.4 fl (80.0-96.0); PLATELET COUNT, AUTOMATED 320 10^3/uL (150-450); RED BLOOD COUNT 4.48 10^6/uL (4.00-5.40); WHITE BLOOD COUNT 8.3 10^3/uL (4.0-10.0)
[2020-09-25 13:16] LABS: HEMOGLOBIN A1c 6.1 %
[2020-09-25 13:34] LABS: CREATININE, URINE 21.3 MG/DL; MALB URINE SIEMENS < 5.0 MG/L; MAU/CREAT RATIO 23.4 MCG/MG (0.0-30.0)
[2020-09-25 13:48] LABS: ALBUMIN 3.9 GM/DL (3.2-5.2); ALT/SGPT 29 U/L (12-78); BILIRUBIN,TOTAL 0.4 MG/DL (0.2-1.0); BLOOD UREA NITROGEN 19 MG/DL (7-18); CALCIUM LEVEL 10.6 MG/DL (8.8-10.2); CARBON DIOXIDE LEVEL 27 MEQ/L (21-32); CHLORIDE LEVEL 108 MEQ/L (98-107); CHOLESTEROL LEVEL 130 MG/DL (<200); CHOLESTEROL RISK RATIO 2.549 (<5); CREATININE FOR GFR 0.62 MG/DL (0.55-1.30); FOLATE 6.8 NG/ML; FREE T4 0.89 NG/DL (0.76-1.46); GLOMERULAR FILTRATION RATE > 60.0 (>45); GLUCOSE, FASTING 103 MG/DL (70-100); HDL CHOLESTEROL 51 MG/DL (>40); LDL CHOLESTEROL 55 MG/DL (<100); NON-HDL-C 79 MG/DL; POTASSIUM SERUM 4.2 MEQ/L (3.5-5.1); SODIUM LEVEL 140 MEQ/L (136-145); TOTAL 25(OH) VITAMIN D 34.7 NG/ML (30.0-100.0); TOTAL PROTEIN 7.2 GM/DL (6.4-8.2); TRIGLYCERIDES LEVEL 121 MG/DL (<150); VITAMIN B12 LEVEL 307 PG/ML
== END ==
LOC: M SFHCADAM 09:53
PROVIDERS: ATTEND Physician Assistant
DX: I10 Essential (primary) hypertension (principal); F32.1 Major depressive disorder, single episode, moderate; E78.5 Hyperlipidemia, unspecified; E11.9 Type 2 diabetes mellitus without complications; Z12.4 Encounter for screening for malignant neoplasm of cervix; N95.2 Postmenopausal atrophic vaginitis

== ENCOUNTER → 2020-10-08 | Outpatient (CLI) | payer OTHER ==
--- NOTE | 2020-10-08 14:13 | REP ---
INDICATION: RENAL CYST COMPARISON: CT dated 11/29/2018 TECHNIQUE: Real time blunt scale ultrasound examination using curved array transducer. FINDINGS: Left kidney measures 11.1 x 5.2 x 4.8 cm and is without hydronephrosis, nephrolithiasis, cystic or renal mass lesion. Right kidney measures 11.6 x 6.0 x 4.5 cm and includes 7.5 x 6.7 x 6.4 cm lower pole cyst essentially unchanged compared to prior CT. No hydronephrosis, nephrolithiasis, or renal mass lesion. Bladder is normal. Bilateral ureteral jets identified. IMPRESSION: 7.5 cm stable right lower pole renal cyst. <Electronically signed by Kevyn Reyes > 10/08/20 [id number]
== END ==
LOC: M RAD 12:54
PROVIDERS: ATTEND Physician Assistant
DX: N28.1 Cyst of kidney, acquired (principal)

== ENCOUNTER 2020-12-22 10:34 | Emergency (ER) | payer OTHER ==
[~2020-12-22] VITALS: Ht 162.6 cm; Wt 96.0 kg
--- NOTE | 2020-12-22 13:19 | REP ---
INDICATION: fall COMPARISON: None TECHNIQUE: Five views FINDINGS: There is medial compartmental narrowing. There is tricompartmental marginal osteophytosis. There is mild to moderate asymmetric patellofemoral joint space narrowing. There is no evidence of an acute fracture. IMPRESSION: Chronic changes as described above. <Electronically signed by Omar Masters > 12/22/20 [id number]
--- NOTE | 2020-12-22 13:21 | REP ---
INDICATION: fall. COMPARISON: None. TECHNIQUE: Four views FINDINGS: There is a tiny possible ossific density seen on the ulnar side of the base of the 1st metacarpal and just distal to the trapezium. This is seen only on one view. IMPRESSION: Possible tiny avulsion fracture involving the base of the 1st metacarpal or the distal lateral aspect of the trapezium. There are no priors for comparison. <Electronically signed by Omar Masters > 12/22/20 [id number]
[2020-12-22 14:50] VITALS: BP 139/70
--- NOTE | 2020-12-25 13:47 | ED PDOC ---
Post-Departure Follow-Up radiology report faxed to Kari Elliott MD Dec 25, 2020 13:47
== END 2020-12-22 14:52 | disposition home or self-care (01) ==
LOC: M ED 10:34
DX: M25.531 Pain in right wrist (principal); M25.562 Pain in left knee; M25.761 Osteophyte, right knee; W01.10XA Fall on same level from slipping, tripping and stumbling with subsequent striking against unspecified object, initial encounter; Y92.099 Unspecified place in other non-institutional residence as the place of occurrence of the external cause; Y93.9 Activity, unspecified; Y99.9 Unspecified external cause status; E11.9 Type 2 diabetes mellitus without complications; I25.2 Old myocardial infarction; I10 Essential (primary) hypertension; E78.5 Hyperlipidemia, unspecified; F03.90 Unspecified dementia, unspecified severity, without behavioral disturbance, psychotic disturbance, mood disturbance, and anxiety; Z79.82 Long term (current) use of aspirin; Z79.84 Long term (current) use of oral hypoglycemic drugs; Z79.899 Other long term (current) drug therapy

== ENCOUNTER → 2022-03-02 | Outpatient (REF) | payer OTHER ==
[~2022-03-02] MED LIST changes: -LABE100T4 PO; +LABE100T6 PO; +LOSA25TA13 PO; -LOSA25TA14 PO
== END ==
LOC: M SFHCADAM 15:03
PROVIDERS: ATTEND Physician Assistant
DX: Z53.21 Procedure and treatment not carried out due to patient leaving prior to being seen by health care provider (principal)

== ENCOUNTER → 2022-03-03 | Outpatient (CLI) | payer OTHER | LOC: M ADAMS 07:23 | PROVIDERS: ATTEND Physician Assistant | DX: M19.032 Primary osteoarthritis, left wrist (principal); N95.1 Menopausal and female climacteric states; M25.532 Pain in left wrist ==

== ENCOUNTER → 2022-03-03 | Outpatient (REF) | payer OTHER ==
[2022-03-03 13:36] LABS: HEMATOCRIT 39.8 % (36.0-47.0); HEMOGLOBIN 13.6 g/dl (12.0-15.5); MEAN CORPUSCULAR HGB CONC 34.2 g/dl (32.0-36.5); MEAN CORPUSCULAR VOLUME 93.6 fl (80.0-96.0); PLATELET COUNT, AUTOMATED 322 10^3/uL (150-450); RED BLOOD COUNT 4.25 10^6/uL (4.00-5.40); WHITE BLOOD COUNT 7.7 10^3/uL (4.0-10.0)
[2022-03-03 14:31] LABS: CREATININE, URINE 61.4 MG/DL; MALB URINE SIEMENS 5.6 MG/L; MAU/CREAT RATIO 9.1 MCG/MG (0.0-30.0)
[2022-03-03 14:39] LABS: ALBUMIN 3.9 GM/DL (3.2-5.2); ALT/SGPT 30 U/L (12-78); BILIRUBIN,TOTAL 0.4 MG/DL (0.2-1.0); BLOOD UREA NITROGEN 17 MG/DL (7-18); CALCIUM LEVEL 10.3 MG/DL (8.8-10.2); CARBON DIOXIDE LEVEL 25 MEQ/L (21-32); CHLORIDE LEVEL 108 MEQ/L (98-107); CHOLESTEROL LEVEL 109 MG/DL (<200); CHOLESTEROL RISK RATIO 2.725 (<5); CREATININE FOR GFR 0.74 MG/DL (0.55-1.30); FREE T4 0.94 NG/DL (0.76-1.46); GLOMERULAR FILTRATION RATE > 60.0 (>45); GLUCOSE, FASTING 109 MG/DL (70-100); HDL CHOLESTEROL 40 MG/DL (>40); LDL CHOLESTEROL 40 MG/DL (<100); NON-HDL-C 69 MG/DL; POTASSIUM SERUM 4.6 MEQ/L (3.5-5.1); RHEUMATOID FACTOR QUANT < 10.0 IU/ML (<15.0); SODIUM LEVEL 140 MEQ/L (136-145); TOTAL PROTEIN 7.1 GM/DL (6.4-8.2); TRIGLYCERIDES LEVEL 143 MG/DL (<150)
[2022-03-03 19:05] LABS: VITAMIN B12 LEVEL 256 PG/ML (247-911)
[2022-03-03 19:45] LABS: HEMOGLOBIN A1c 5.6 %
== END ==
LOC: M SFHCADAM 07:21
PROVIDERS: ATTEND Physician Assistant
DX: I10 Essential (primary) hypertension (principal); E11.9 Type 2 diabetes mellitus without complications; E78.5 Hyperlipidemia, unspecified

== ENCOUNTER → 2023-04-04 | Outpatient (REF) | payer MEDICARE, OTHER ==
[2023-04-04 13:00] LABS: HEMATOCRIT 38.9 % (36.0-47.0); HEMOGLOBIN 12.9 g/dl (12.0-15.5); MEAN CORPUSCULAR HEMOGLOBIN 30.9 pg (27.0-33.0); MEAN CORPUSCULAR HGB CONC 33.2 g/dl (32.0-36.5); MEAN CORPUSCULAR VOLUME 93.3 fl (80.0-96.0); PLATELET COUNT, AUTOMATED 280 10^3/uL (150-450); RED BLOOD COUNT 4.17 10^6/uL (4.00-5.40); WHITE BLOOD COUNT 6.5 10^3/uL (4.0-10.0)
[2023-04-04 13:26] LABS: HEMOGLOBIN A1c 5.4 % (4.0-6.0)
[2023-04-04 13:54] LABS: ALBUMIN 3.9 G/DL (3.2-5.2); ALKALINE PHOSPHATASE 94 U/L (46-116); ALT/SGPT 18 U/L (7.0-40); AST/SGOT 13 U/L (<34); BILIRUBIN,TOTAL 0.5 MG/DL (0.3-1.2); BLOOD UREA NITROGEN 19 MG/DL (9-23); CALCIUM LEVEL 10.1 MG/DL (8.3-10.6); CARBON DIOXIDE LEVEL 25 MMOL/L (20-31); CHLORIDE LEVEL 107 MMOL/L (98-107); CHOLESTEROL LEVEL 179 MG/DL (<200); CHOLESTEROL RISK RATIO 3.82 (<5); CREATININE FOR GFR 0.64 MG/DL (0.55-1.30); FOLATE > 24.0 NG/ML (>5.4); FREE T4 0.86 NG/DL (0.89-1.76); GLOMERULAR FILTRATION RATE > 60.0 (>45); GLUCOSE, FASTING 96 MG/DL (74-106); HDL CHOLESTEROL 46.8 MG/DL (>40); LDL CHOLESTEROL 103.4 MG/DL (<100); NON-HDL-C 132.2 MG/DL; POTASSIUM SERUM 4.1 MMOL/L (3.5-5.1); SODIUM LEVEL 140 MMOL/L (136-145); THYROID STIMULATING HORMONE 3.369 uIU/ML (0.55-4.78); TOTAL PROTEIN 6.9 G/DL (5.7-8.2); TRIGLYCERIDES LEVEL 144 MG/DL (<150); VITAMIN B12 LEVEL 523 PG/ML (211-911)
== END ==
LOC: M SFHCADAM 08:35
PROVIDERS: ATTEND Physician Assistant
DX: I10 Essential (primary) hypertension (principal); E11.9 Type 2 diabetes mellitus without complications; E78.5 Hyperlipidemia, unspecified; Z12.31 Encounter for screening mammogram for malignant neoplasm of breast; Z13.820 Encounter for screening for osteoporosis; L30.9 Dermatitis, unspecified; Z12.11 Encounter for screening for malignant neoplasm of colon

== ENCOUNTER → 2023-07-18 | Outpatient (REF) | payer MEDICARE, OTHER ==
[2023-07-18 14:20] LABS: BASO % 0.6 % (0.0-1.0); EOS # 0.2 10^3/uL (0.0-0.5); EOS % 3.5 % (0.0-3.0); HEMATOCRIT 40.7 % (36.0-47.0); HEMOGLOBIN 13.6 g/dl (12.0-15.5); LYMPH # 2.2 10^3/uL (1.5-5.0); LYMPH % 35.1 % (24.0-44.0); MEAN CORPUSCULAR HEMOGLOBIN 31.8 pg (27.0-33.0); MEAN CORPUSCULAR HGB CONC 33.4 g/dl (32.0-36.5); MEAN CORPUSCULAR VOLUME 95.1 fl (80.0-96.0); MONO # 0.5 10^3/uL (0.0-0.8); MONO % 8.5 % (2.0-8.0); NEUTROPHILS # 3.3 10^3/uL (1.5-8.5); NEUTROPHILS % 52.1 % (36.0-66.0); PLATELET COUNT, AUTOMATED 313 10^3/uL (150-450); RED BLOOD COUNT 4.28 10^6/uL (4.00-5.40); WHITE BLOOD COUNT 6.3 10^3/uL (4.0-10.0)
[2023-07-18 14:39] LABS: ERYTHROCYTE SEDIMENTATION RATE 12 mm/hr (0-30)
[2023-07-18 14:42] LABS: HEMOGLOBIN A1c 5.3 % (4.0-6.0)
[2023-07-18 14:50] LABS: C REACTIVE PROTEIN QUANTITATIV < 0.40 MG/DL (<1.0)
[2023-07-18 14:52] LABS: ALKALINE PHOSPHATASE 105 U/L (46-116); ALT/SGPT 21 U/L (7.0-40); AST/SGOT 16 U/L (<34); BILIRUBIN,TOTAL 0.4 MG/DL (0.3-1.2); BLOOD UREA NITROGEN 17 MG/DL (9-23); CALCIUM LEVEL 9.7 MG/DL (8.3-10.6); CARBON DIOXIDE LEVEL 25 MMOL/L (20-31); CHLORIDE LEVEL 110 MMOL/L (98-107); FREE T4 0.88 NG/DL (0.89-1.76); GLOMERULAR FILTRATION RATE > 60.0 (>45); GLUCOSE, FASTING 96 MG/DL (74-106); POTASSIUM SERUM 4.4 MMOL/L (3.5-5.1); SODIUM LEVEL 141 MMOL/L (136-145); THYROID STIMULATING HORMONE 4.135 uIU/ML (0.55-4.78); TOTAL PROTEIN 7.2 G/DL (5.7-8.2)
[2023-07-18 14:53] LABS: FOLATE 16.4 NG/ML (>5.4); RHEUMATOID FACTOR QUANT < 3.5 IU/ML (<14)
[2023-07-18 14:54] LABS: TOTAL 25(OH) VITAMIN D 40.7 NG/ML (20.0-100.0); VITAMIN B12 LEVEL 431 PG/ML (211-911)
[2023-07-19 23:09] LABS: ANA (HEP2) Negative (.)
== END ==
LOC: M SFHCADAM 08:14
PROVIDERS: ATTEND Physician Assistant
DX: M79.18 Myalgia, other site (principal); R79.89 Other specified abnormal findings of blood chemistry; R73.03 Prediabetes; I10 Essential (primary) hypertension; Z79.899 Other long term (current) drug therapy

== ENCOUNTER → 2024-06-06 | Outpatient (CLI) | payer MEDICARE, OTHER | LOC: M ADAMS 10:39 | PROVIDERS: ATTEND Physician Assistant | DX: M25.561 Pain in right knee (principal); M25.562 Pain in left knee; M17.0 Bilateral primary osteoarthritis of knee; M11.261 Other chondrocalcinosis, right knee; M11.262 Other chondrocalcinosis, left knee ==

== ENCOUNTER → 2024-06-06 | Outpatient (REF) | payer MEDICARE, OTHER ==
[2024-06-06 14:54] LABS: HEMOGLOBIN 14.1 g/dl (12.0-15.5); MEAN CORPUSCULAR HEMOGLOBIN 31.3 pg (27.0-33.0); MEAN CORPUSCULAR HGB CONC 33.6 g/dl (32.0-36.5); MEAN CORPUSCULAR VOLUME 93.1 fl (80.0-96.0); PLATELET COUNT, AUTOMATED 294 10^3/uL (150-450); RED BLOOD COUNT 4.51 10^6/uL (4.00-5.40); WHITE BLOOD COUNT 7.5 10^3/uL (4.0-10.0)
[2024-06-06 15:24] LABS: ALKALINE PHOSPHATASE 91 U/L (35-104); ALT/SGPT 18 U/L (7.0-40); AST/SGOT 14 U/L (<34); BILIRUBIN,TOTAL 0.4 MG/DL (0.3-1.2); BLOOD UREA NITROGEN 17 MG/DL (9-23); CALCIUM LEVEL 10.4 MG/DL (8.3-10.6); CARBON DIOXIDE LEVEL 26 MMOL/L (20-31); CHLORIDE LEVEL 109 MMOL/L (98-107); CHOLESTEROL LEVEL 172 MG/DL (<200); CHOLESTEROL RISK RATIO 3.93 (<5); CREATININE FOR GFR 0.73 MG/DL (0.55-1.30); GLOMERULAR FILTRATION RATE > 60.0 (>45); GLUCOSE, FASTING 104 MG/DL (74-106); HDL CHOLESTEROL 43.7 MG/DL (>40); LDL CHOLESTEROL 88.5 MG/DL (<100); NON-HDL-C 128.3 MG/DL; POTASSIUM SERUM 4.5 MMOL/L (3.5-5.1); SODIUM LEVEL 143 MMOL/L (136-145); TOTAL PROTEIN 7.7 G/DL (5.7-8.2); TRIGLYCERIDES LEVEL 199 MG/DL (<150)
[2024-06-06 15:26] LABS: FREE T4 1.07 NG/DL (0.89-1.76); THYROID STIMULATING HORMONE 4.059 uIU/ML (0.55-4.78)
[2024-06-06 16:00] LABS: HEMOGLOBIN A1c 5.6 % (4.0-6.0)
== END ==
LOC: M SFHCADAM 10:13
PROVIDERS: ATTEND Physician Assistant
DX: Z12.11 Encounter for screening for malignant neoplasm of colon (principal); E11.9 Type 2 diabetes mellitus without complications; Z12.31 Encounter for screening mammogram for malignant neoplasm of breast; Z13.820 Encounter for screening for osteoporosis; I10 Essential (primary) hypertension; E78.5 Hyperlipidemia, unspecified

== ENCOUNTER → 2024-12-11 | Outpatient (REF) | payer MEDICARE, OTHER ==
[~2024-12-11] MED LIST changes: -FLOM0.4C39 PO; +TAMS-18 PO
[2024-12-11 14:06] LABS: ALT/SGPT 18 U/L (7.0-40); AST/SGOT 17 U/L (<34); CALCIUM LEVEL 10.1 MG/DL (8.3-10.6); CARBON DIOXIDE LEVEL 24 MMOL/L (20-31); CHLORIDE LEVEL 106 MMOL/L (98-107); CREATININE FOR GFR 0.70 MG/DL (0.55-1.30); GLOMERULAR FILTRATION RATE > 90.0 (>45); POTASSIUM SERUM 4.4 MMOL/L (3.5-5.1); SODIUM LEVEL 144 MMOL/L (136-145)
[2024-12-11 14:42] LABS: ESTIMATED AVERAGE GLUCOSE 100.0 MG/DL (60-110)
== END ==
LOC: M SFHCADAM 08:04
PROVIDERS: ATTEND Physician Assistant
DX: E11.9 Type 2 diabetes mellitus without complications (principal); I10 Essential (primary) hypertension

== ENCOUNTER 2025-04-25 08:08 | Emergency (ER) | payer MEDICARE, MEDICAID ==
[~2025-04-25] VITALS: Ht 160 cm; Wt 81.4 kg
[~2025-04-25 08:08] MED LIST changes: -LABE100T6 PO; +LABE100T91 PO
[2025-04-25 09:16] LABS: KETONE, URINE AUTO RFX NEGATIVE (NEGATIVE); MUCUS, URINE RFX SMALL (NEGATIVE); NITRITE, URINE AUTO RFX NEGATIVE (NEGATIVE); RBC, URINE AUTO RFX 1 /HPF (0-3); SQUAM EPITHELIAL CELL UR AURFX 2 /HPF (0-6)
[2025-04-25 09:22] LABS: LEUKOCYTE ESTERASE UR AUTO RFX 2+ (NEGATIVE); WBC, URINE AUTO RFX 13 /HPF (0-3)
[2025-04-25 09:55] LABS: BASO # 0.1 10^3/uL (0.0-0.2); BASO % 0.7 % (0.0-1.0); EOS # 0.3 10^3/uL (0.0-0.5); EOS % 3.6 % (0.0-3.0); LYMPH # 2.0 10^3/uL (1.5-5.0); LYMPH % 26.5 % (24.0-44.0); MONO # 0.6 10^3/uL (0.0-0.8); MONO % 8.1 % (2.0-8.0); NEUTROPHILS # 4.6 10^3/uL (1.5-8.5); NEUTROPHILS % 60.8 % (36.0-66.0); PLATELET COUNT, AUTOMATED 319 10^3/uL (150-450)
[2025-04-25] MEDS: KETOROLAC 30 MG/ML 1 ML VIAL IV ONE (10:06)
[2025-04-25] MEDS: METHOCARBAMOL 1,000 MG/10 ML VIAL IV ONE (10:06)
[2025-04-25 10:25] LABS: ALT/SGPT 14 U/L (7.0-40); AST/SGOT 16 U/L (<34)
[2025-04-25 12:00] VITALS: BP 170/89; TEMP 97.9; O2SAT 97
[2025-04-25] MEDS ORDERED: METH-1165 PO (12:00)
[2025-04-25] MEDS ORDERED: KETO-204 PO (12:00)
== END 2025-04-25 12:17 | disposition home or self-care (01) ==
LOC: M ED 08:08
DX: S39.012A Strain of muscle, fascia and tendon of lower back, initial encounter (principal); X58.XXXA Exposure to other specified factors, initial encounter; R74.8 Abnormal levels of other serum enzymes; N28.1 Cyst of kidney, acquired; I10 Essential (primary) hypertension; E78.5 Hyperlipidemia, unspecified; E11.9 Type 2 diabetes mellitus without complications; Z87.442 Personal history of urinary calculi; Z79.82 Long term (current) use of aspirin; Z79.02 Long term (current) use of antithrombotics/antiplatelets; Z79.899 Other long term (current) drug therapy; Y92.9 Unspecified place or not applicable; Y93.9 Activity, unspecified; Y99.9 Unspecified external cause status
CPT/HCPCS: 74176; 80047; 80076; 81001; 83690; 85025; 87086; 96374; 99284; J1885; J2800